=== PATIENT | female | born 1985 | race Two or more races ===

== ENCOUNTER 2017-12-10 01:15 | Emergency (ER) | payer BC, OTHER ==
[~2017-12-10] VITALS: Ht 170.2 cm; Wt 57.0 kg
[2017-12-10] MEDS ORDERED: ACETAMINOPHEN 325MG TABLET PO STA (02:28)
[2017-12-10 02:57] LABS: BASOPHILS % 0.6 % (0.0-2.0); EOSINOPHILS % 0.3 % (0.0-5.0); HEMATOCRIT. 38.4 % (36.0-48.0); HEMOGLOBIN. 13.3 g/dL (12.0-16.0); LYMPHOCYTES % 16.1 % (20.0-50.0); MEAN CORPUSCULAR HEMOGLOBIN 32.1 pg (28.0-32.0); MEAN CORPUSCULAR VOLUME 92.8 fL (81.0-99.0); MEAN PLATELET VOLUME 8.6 fl (7.4-10.4); MONOCYTES % 6.1 % (2.0-8.0); NEUTROPHILS % 76.9 % (40.0-76.0); PLATELET 217 x1000/uL (130-400); RED BLOOD CELL COUNT 4.14 mill/uL (4.2-5.4); RED CELL DISTRIBUTION WIDTH 13.1 % (11.6-14.6)
[2017-12-10 03:05] LABS: D-DIMER 0.3 mg/L FEU (<0.50); INR 0.9; PROTHROMBIN TIME 9.8 sec (9.4-11.6)
[2017-12-10 03:20] LABS: CHLORIDE 105 mEq/L (98-107); ETHANOL BLOOD < 10 mg/dL
[2017-12-10 04:01] LABS: CLARITY URINE CLEAR (CLEAR); COLOR URINE YELLOW (YELLOW); KETONES URINE NEGATIVE (NEGATIVE); LEUKOCYTE ESTERASE URINE NEGATIVE (NEGATIVE); NITRITE URINE NEGATIVE (NEGATIVE); OCCULT BLOOD URINE NEGATIVE (NEGATIVE); PH URINE 6.5 (4.5-8.0); PROTEIN URINE NEGATIVE (NEGATIVE); SPECIFIC GRAVITY URINE 1.019 (1.005-1.030); UROBILINOGEN URINE 0.2 E.U./dL (0.2-1.0)
[2017-12-10 04:22] LABS: *AMPHETAMINES SCREEN URINE NEGATIVE (NEGATIVE); *BARBITURATES SCREEN URINE NEGATIVE (NEGATIVE); *BENZODIAZEPINES SCREEN URINE NEGATIVE (NEGATIVE); *COCAINE SCREEN URINE NEGATIVE (NEGATIVE)
[2017-12-10 04:23] LABS: CANNABINOID URINE SCREEN NEGATIVE (NEGATIVE); METHADONE URINE SCREEN NEGATIVE (NEGATIVE); OPIATES URINE SCREEN NEGATIVE (NEGATIVE); PHENCYCLIDINE URINE SCREEN NEGATIVE (NEGATIVE)
[2017-12-10 05:50] VITALS: BP 108/62
== END 2017-12-10 05:51 | disposition home or self-care (01) ==
LOC: ER 01:15
DX: O26.891 Other specified pregnancy related conditions, first trimester (principal); R07.89 Other chest pain; M79.602 Pain in left arm; R68.84 Jaw pain; Z3A.11 11 weeks gestation of pregnancy
CPT/HCPCS: 36415; 80053; 80305; 81003; 83690; 83880; 84484; 85025; 85379; 85610; 93005; 99285; G0482; Z7610